=== PATIENT | male | born 1985 | race African-American/Black ===

== ENCOUNTER 2016-12-17 12:44 | Emergency (ER) | payer MEDICAID ==
[~2016-12-17] VITALS: Ht 185.4 cm; Wt 75.0 kg
[~2016-12-17 12:44] MED LIST: DIVALPROEX SOD250 MG PO; KEPPRA750 MG OR; LEVETIRACETA1000 MG OR; LEVETIRACETAM750 M1 PO; MOTRIN800 MG PO; TRILEPTAL600 MG PO
[2016-12-17] MEDS ORDERED: MOTRIN800 MG PO (13:23)
[2016-12-17 14:15] VITALS: BP 139/74
== END 2016-12-17 14:15 | disposition home or self-care (01) | DRG 566 ==
LOC: ED 12:44
DX: M25.461 Effusion, right knee (principal)

== ENCOUNTER 2017-01-10 13:36 | Emergency (ER) | payer SELFPAY ==
[~2017-01-10] VITALS: Ht 185.4 cm; Wt 89.4 kg
[2017-01-10] MEDS ORDERED: ULTRAM50 M1 PO (14:46)
[2017-01-10 14:50] VITALS: BP 139/74
== END 2017-01-10 14:50 | disposition home or self-care (01) | DRG 563 ==
LOC: ED 13:36
DX: S53.402A Unspecified sprain of left elbow, initial encounter (principal); G40.909 Epilepsy, unspecified, not intractable, without status epilepticus; V11.0XXA Pedal cycle driver injured in collision with other pedal cycle in nontraffic accident, initial encounter

== ENCOUNTER 2017-01-19 11:28 | Emergency (ER) | payer SELFPAY ==
[~2017-01-19] VITALS: Ht 185.4 cm; Wt 77.0 kg
[~2017-01-19 11:28] MED LIST changes: +ULTRAM50 M1 PO
[2017-01-19] MEDS ORDERED: TRILEPTAL600 MG PO (11:55)
[2017-01-19] MEDS ORDERED: DIVALPROEX SOD250 MG PO (11:55)
[2017-01-19] MEDS ORDERED: LEVETIRACETAM750 M1 PO (11:55)
[2017-01-19 12:00] VITALS: BP 131/74
== END 2017-01-19 12:00 | disposition home or self-care (01) | DRG 951 ==
LOC: ED 11:28
DX: Z76.0 Encounter for issue of repeat prescription (principal)

== ENCOUNTER 2017-03-13 21:05 | Emergency (ER) | payer MEDICARE, MEDICAID ==
[~2017-03-13] VITALS: Ht 185.4 cm; Wt 89.4 kg
[2017-03-13 22:11] LABS: HEMATOCRIT 40.1 % (39.0-50.0); HEMOGLOBIN 13.5 g/dl (14.0-18.0); IMMATURE GRANULOCYTES 0.3 % (0.0-1.0); MEAN CELL VOLUME 86.1 fL CALC (80.0-100.0); MEAN CORPUSCULAR HGB CONC 33.7 g/L CALC (32.0-36.0); NEUT# 3.55 thou/uL (1.82-7.42); RED BLOOD COUNT 4.66 mill/uL (4.70-6.10); RED CELL DISTRI WIDTH 13.4 % (11.5-15.5)
[2017-03-13 22:30] LABS: ALBUMIN 4.3 g/dL (3.2-5.0); ALKALINE PHOSPHATASE 68 u/l (38-126); ANION GAP 16 (6-22 (CALC)); BILIRUBIN, TOTAL 0.4 mg/dL (0.0-1.4); BUN 9 mg/dL (9-20); BUN/CREATININE RATIO 12 (12-20 (CALC)); CARBON DIOXIDE 24 mmol/l (22-30); CHLORIDE 108 mmol/l (95-108); CREATININE 0.8 mg/dL (0.7-1.3); GFR > 60 ML/MIN (>=60 (CALC)); GFR FOR AFR.AMER. > 60 ML/MIN (>=60 (CALC)); GLUCOSE 92 mg/dL (75-110); POTASSIUM 4.2 mmol/l (3.5-5.1); SGOT/AST 23 u/l (17-59); SGPT/ALT 26 u/l (21-72); SODIUM 143 mmol/l (137-146); TOTAL PROTEIN 7.6 g/dL (6.3-8.2)
[2017-03-13] MEDS ORDERED: TRILEPTAL600 MG PO (22:59)
[2017-03-13 23:49] VITALS: BP 134/84
== END 2017-03-13 23:49 | disposition home or self-care (01) ==
LOC: ED 21:05
PROVIDERS: Emergency Medicine
DX: G40.909 Epilepsy, unspecified, not intractable, without status epilepticus (principal); J45.909 Unspecified asthma, uncomplicated; Z91.14 Patient's other noncompliance with medication regimen

== ENCOUNTER 2017-03-31 18:27 | Emergency (ER) | payer MEDICARE, MEDICAID | END 2017-03-31 18:29 | disposition left against medical advice (07) | LOC: ED 18:27 → LWOBS 18:29 | DX: Z91.19 Patient's noncompliance with other medical treatment and regimen (principal) ==

== ENCOUNTER 2017-11-20 17:46 | Emergency (ER) | payer MEDICARE, MEDICAID ==
[~2017-11-20] VITALS: Ht 185.4 cm; Wt 90.9 kg
[2017-11-20 18:34] LABS: HEMATOCRIT 43.4 % (39.0-50.0); HEMOGLOBIN 14.5 g/dl (14.0-18.0); IMMATURE GRANULOCYTES 0.1 % (0.0-1.0); MEAN CELL VOLUME 87.3 fL CALC (80.0-100.0); MEAN CORPUSCULAR HGB 29.2 pG CALC (26.0-32.0); MEAN CORPUSCULAR HGB CONC 33.4 g/L CALC (32.0-36.0); NEUT# 3.51 thou/uL (1.82-7.42); RED BLOOD COUNT 4.97 mill/uL (4.70-6.10); RED CELL DISTRI WIDTH 13.1 % (11.5-15.5)
[2017-11-20 18:40] LABS: ANION GAP 25 (6-22 (CALC)); BUN 15 mg/dL (9-20); BUN/CREATININE RATIO 14 (12-20 (CALC)); CARBON DIOXIDE 16 mmol/l (22-30); CHLORIDE 107 mmol/l (95-108); CREATININE 1.1 mg/dL (0.7-1.3); GFR > 60 ML/MIN (>=60 (CALC)); GFR FOR AFR.AMER. > 60 ML/MIN (>=60 (CALC)); POTASSIUM 4.2 mmol/l (3.5-5.1); SODIUM 144 mmol/l (137-146)
[2017-11-20 19:05] LABS: URINE BILIRUBIN - DIPSTICK NEGATIVE (NEGATIVE); URINE BLOOD DIPSTICK TRACE-INTACT (NEGATIVE); URINE COLOR YELLOW; URINE GLUCOSE - DIPSTICK NEGATIVE (NEGATIVE); URINE KETONE TRACE mg/dL (NEGATIVE); URINE LEUK ESTERASE NEGATIVE (NEGATIVE); URINE NITRITE - DIPSTICK NEGATIVE (Negative); URINE PROTEIN - DIPSTICK TRACE mg/dL (NEG-TRACE); URINE SPECIFIC GRAVITY 1.025; URINE UROBILINOGEN - DIPSTICK 0.2 E.U./dL (0.2)
[2017-11-20 19:09] LABS: BARBITURATES NEGATIVE (NEGATIVE); COCAINE NEGATIVE (NEGATIVE); METHADONE NEGATIVE (NEGATIVE); OXCYCODONE NEGATIVE (NEGATIVE); TETRAHYDROCANNABIONOL NEGATIVE (NEGATIVE); TRICYLIC ANTIDEPRESSANTS NEGATIVE (NEGATIVE)
[2017-11-20 19:25] LABS: URINE CLARITY CLEAR
[2017-11-20] MEDS ORDERED: LEVETIRACETAM750 M1 PO (19:29)
[2017-11-20] MEDS ORDERED: DIVALPROEX SOD250 MG PO (19:29)
[2017-11-20] MEDS ORDERED: TRILEPTAL600 MG PO (19:29)
[2017-11-20 20:20] VITALS: BP 128/77
[2017-11-21] MEDS ORDERED: CEPHALEXIN500 M1 PO (10:30)
== END 2017-11-20 20:20 | disposition home or self-care (01) ==
LOC: ED 17:46
PROVIDERS: Emergency Medicine; Family Medicine
DX: R56.9 Unspecified convulsions (principal); Z76.0 Encounter for issue of repeat prescription

== ENCOUNTER 2017-11-21 08:48 | Emergency (ER) | payer MEDICARE, MEDICAID ==
[~2017-11-21] VITALS: Ht 185.4 cm; Wt 81.8 kg
[2017-11-21 09:33] LABS: HEMATOCRIT 43.2 % (39.0-50.0); HEMOGLOBIN 14.4 g/dl (14.0-18.0); IMMATURE GRANULOCYTES 0.3 % (0.0-1.0); MEAN CELL VOLUME 87.8 fL CALC (80.0-100.0); MEAN CORPUSCULAR HGB 29.3 pG CALC (26.0-32.0); MEAN CORPUSCULAR HGB CONC 33.3 g/L CALC (32.0-36.0); NEUT# 4.41 thou/uL (1.82-7.42); RED BLOOD COUNT 4.92 mill/uL (4.70-6.10); RED CELL DISTRI WIDTH 13.2 % (11.5-15.5)
[2017-11-21 09:35] LABS: ANION GAP 21 (6-22 (CALC)); BUN 14 mg/dL (9-20); BUN/CREATININE RATIO 13 (12-20 (CALC)); CARBON DIOXIDE 21 mmol/l (22-30); CHLORIDE 108 mmol/l (95-108); CREATININE 1.1 mg/dL (0.7-1.3); GFR > 60 ML/MIN (>=60 (CALC)); GFR FOR AFR.AMER. > 60 ML/MIN (>=60 (CALC)); POTASSIUM 4.8 mmol/l (3.5-5.1); SODIUM 145 mmol/l (137-146)
[2017-11-21] MEDS ORDERED: CEPHALEXIN500 M1 PO (10:30)
[2017-11-21 10:52] VITALS: BP 151/79
== END 2017-11-21 10:59 | disposition home or self-care (01) ==
LOC: ED 08:48
PROVIDERS: Family Medicine
PROC: 2W3DX1Z Immobilization of Left Lower Arm using Splint (ICD-10-PCS; principal; 2017-11-21)
DX: G40.409 Other generalized epilepsy and epileptic syndromes, not intractable, without status epilepticus (principal); S60.512A Abrasion of left hand, initial encounter; X58.XXXA Exposure to other specified factors, initial encounter; Y92.512 Supermarket, store or market as the place of occurrence of the external cause; Z91.14 Patient's other noncompliance with medication regimen
CPT/HCPCS: J1953